=== PATIENT | male | born 1980 | race Caucasian/White ===

== ENCOUNTER → 2018-08-06 | Day surgery (SDC) | payer BC, OTHER ==
[2018-07-31 15:58] VITALS: BMI 29.2
[~2018-08-06] MED LIST: BUPIVACAINE HCL/PF (5 MG/ML) 30 ML VIAL IJ ONE; CEFAZOLIN 2 GM in DEXTROSE 5%-WATER - 100 ML IVPB ONE; DEXAMETHASONE SOD PHOSPHATE 4 MG/1 ML VIAL ONE; DEXAMETHASONE SOD PHOSPHATE/PF 10 MG/ML SDV ONE; GUM MASTIC/STORAX/MSAL/ALCOHOL 1 DRP DROPSBTL MC ONE; LIDOCAINE 1%/EPI 1:100000 (20 ML MULTI DOSE VIAL) ONE; MIDAZOLAM HCL 2 MG/2 ML SINGLE DOSE VIAL ONE; ONDANSETRON 4 MG/2 ML VIAL IVPUSH PRN; ONDANSETRON 4 MG/2 ML VIAL ONE; PROMETHAZINE HCL 25 MG/1 ML VIAL IVPUSH PRN; PROPOFOL 20 ML ONE; SUCCINYLCHOLINE CHLORIDE 200 MG/10 ML VIAL ONE; THROMBIN (BOVINE) 5,000 UNIT VIAL TP ONE; ceFAZolin SODIUM 1 GM VIAL ONE; methylPREDNISolone ACET (DEPO) 40 MG/1 ML VIAL ONE; oxyCODONE HCL 10 MG SUSTAINED ACTING TABLET PO STA; oxyCODONE HCL 5 MG TABLET PO PRN
--- NOTE | 2018-08-06 07:05 | HP ---
History & Physical Update - History History: No Change - Physical Physical: No Change - Assessment Assessment: No Change - Plan Plan: No Change (Planned procedure is L5-S1 laminectomy.)
--- NOTE | 2018-08-06 13:46 | OP ---
Operative Note - Note: Operative Date: 08/06/18 Pre-Operative Diagnosis: L5/S1 stenosis, HNP, radiculopathy Operation: L5/S1 bilateral laminectomy with discectomy Post-Operative Diagnosis: Same as Pre-op Surgeon: Gary Andrews Print Graphic Designer: Nahun Vásquez Anesthesiologist/[employer] ADMINISTRATOR: Seven Perry Anesthesia: Spinal Specimens Removed: L5/S1 disc Estimated Blood Loss (mls): 20 Fluid Volume Replaced (mls): 1,000 Operative Report Dictated: Yes
--- NOTE | 2018-08-06 13:47 | SURG ---
Surgery Dancing Master Note Dancing Master: Nahun Vásquez PA-C Date of Service: 08/06/18 Diagnosis: L5/S1 stenosis, HNP, radiculopathy Procedure: L5/S1 bilateral laminectomy, discectomy I was present for the entirety of the operative procedure. For further detail, please refer to operative report. Visit type - Case Type Case Type: Scheduled - New patient This patient is new to me today: Yes Date on this admission: 08/06/18
[2018-08-06 14:42] VITALS: TEMP 98.7
--- NOTE | 2018-08-06 15:22 | OP ---
DATE OF OPERATION: 08/06/2018 PREOPERATIVE DIAGNOSIS: Spinal stenosis, L5-S1. POSTOPERATIVE DIAGNOSIS: Spinal stenosis, L5-S1. PROCEDURE PERFORMED: Laminectomy, L5-S1. SURGEON: Gary Andrews MD ANESTHESIOLOGY MEDICAL DOCTOR: NEYMAR Marquez ESTIMATED BLOOD LOSS: 50 mL. INTRAVENOUS FLUIDS: Per Anesthesia. ANESTHESIA: Spinal/TLIP. COMPLICATIONS: None. DISPOSITION: Patient brought to the PACU in stable condition. INDICATION FOR SURGERY: Patient is a 38-year-old gentleman who has been suffering from pain from his back down his legs. X-rays and MRI were completed which noted that he has spinal stenosis at L5-S1 secondary to a herniated disk. He has gone through an exhaustive course of treatment which included medications, physical therapy, as well as injections. Unfortunately, his pain continued to persist despite all this. Risks, benefits, and alternatives are discussed, and the patient consented to surgery. DESCRIPTION OF PROCEDURE: Patient was brought to the operating room by the Anesthesia staff. After appropriate patient identification was performed, spinal anesthesia was given. A TLIP block was also given. The patient was able to position himself prone onto the Jaswinder frame with all areas of bony prominences well padded. At this time, 2 needles were placed in his back to jeremiah off the L5-S1 level and x-ray taken to confirm this was correct. Needle was removed, and 10 mL of lidocaine with epinephrine was injected into the back. At the time, his back was prepped and draped in a sterile manner. At this point, a timeout was completed. An incision was made from the top of L5 down to the bottom of S1. Dissection was carried down to the fascia. The fascia was then split open at this time, and appropriate retractors were then placed in. A spinal needle was placed onto the L5 level to jeremiah off the L5-S1 level. An x-ray was taken to confirm this was correct. Needle was removed, and the intraspinal segment of L5-S1 was removed. The portion of the L5-S1 spinous processes was removed. Portions of L5-S1 sublaminar were removed. Portions of the L5-S1 ligamentum flavum was removed. The nerve root was mobilized medially, and disk herniation was noted and removed. At this time, portions of the inferior and superior facets were removed. By the end of the procedure, the S1 nerve root appeared to be well decompressed. All bleeding was well controlled at this time. Steroids were placed over the nerve root. FloSeal was placed over that. The fascia was closed with a number 1 Vicryl suture. Subcutaneous tissue was closed with 2-0 Vicryl sutures. Skin was closed with 3-0 Monocryl suture. Dermabond was applied. Steri-Strips were applied. Sterile dressing was applied. Patient was placed supine on the OR bed and brought to the PACU in stable condition. Adán RILEY/[id number]
[2018-08-06 15:40] VITALS: BP 114/72; PULSE 64
--- NOTE | 2018-08-10 12:46 | PATH ---
Surgical Pathology Report Patient Name: LEANDRO MOODY [facility]. Rec. #: [id number] /Age/Gender: 1980 (Age: 38) / M Account: [id number] Location: [facility] Taken: 08/06/2018 Received: 08/06/2018 Reported: 08/10/2018 Physicians: Gary Andrews M.D. Specimen(s) Received DISC L5-S Clinical History Spinal stenosis Final Diagnosis DISC, L5-S1, LAMINECTOMY: CARTILAGE, FIBROCOLLAGENOUS TISSUE AND BONE. Electronically Signed Spring Mendez M.D. Gross Description Received in formalin labeled "disc L5-S1," is a 1.0 x 0.8 x 0.3 cm aggregate of vargas-brown portions of fibrocartilaginous tissue. The specimen is submitted in toto in one cassette. 08/07/201808/07/2018
== END | disposition home or self-care (01) ==
LOC: FASU 09:21
PROVIDERS: ATTEND Orthopaedic Surgery Orthopaedic Surgery of the Spine
PROC: 01NB0ZZ Release Lumbar Nerve, Open Approach (ICD-10-PCS; principal; 2018-08-06 12:26)
DX: M48.07 Spinal stenosis, lumbosacral region (principal)
CPT/HCPCS: 72100-TC-FY; 88304-TC; 94760